=== PATIENT | female | born 1995 | race Caucasian/White ===

== ENCOUNTER 2017-07-29 14:16 | Emergency (ER) | payer OTHER ==
[2017-07-29] MEDS ORDERED: NS 1,000 ML IV ONE (14:53)
[2017-07-29] MEDS ORDERED: PROMETHAZINE HCL 25 MG/ML INJ IVP ONE (15:02)
[2017-07-29] MEDS ORDERED: ONDANSETRON 4 MG/2 ML VIAL IVP ONE (15:02)
[2017-07-29] MEDS ORDERED: FAMOTIDINE 20 MG/2 ML SDV IVP ONE (15:03)
--- NOTE | 2017-07-29 15:03 | EDPHY ---
General Time Seen by Provider: 07/29/17 14:51 Narrative: CHIEF COMPLAINT: Nausea, vomiting, abdominal pain HISTORY OF PRESENT ILLNESS: Patient presents with complaints of nausea, vomiting and abdominal pain. Symptoms started abruptly this morning. [id number]. Constant duration. No diarrhea. No bloody emesis. She has been unable to tolerate intake by mouth. No fever. No trauma or injury. No previous abdominal pathology. No recent travel. She reports that she feels very achy and tired all over. No other associated complaints or modifying factors. REVIEW OF SYSTEMS: Ten systems reviewed and are negative unless otherwise noted in the HPI PCP: Dr. Conrad SPECIALISTS: None PAST MEDICAL HISTORY: Hypothyroid, orthopedic injury PAST SURGICAL HISTORY: Left foot surgery SOCIAL HISTORY: Nonsmoker. [employer] student. Lives here independently FAMILY HISTORY: Noncontributory EXAMINATION General Appearance: Alert, no distress Head: normocephalic, atraumatic Eyes: Pupils equal and round, no conjunctival pallor or injection ENT, Mouth: Mucous membranes moist Neck: Normal inspection, supple, non-tender. No meningeal signs Respiratory: Lungs are clear to auscultation Cardiovascular: Regular rate and rhythm Gastrointestinal: Abdomen is soft and nondistended. Tenderness in the upper quadrants. No guarding. No tympany. No rigidity. No CVA tenderness. Negative McBurney. Negative Rovsing. Negative obturator. Back: non-tender, no bony abnormalities Neurological: A&O, nonfocal, normal gait Skin: Warm and dry, no rash. No petechiae or purpura Extremities: Nontender, no pedal edema Psychiatric: Mood and affect normal DIFFERENTIAL DIAGNOSES: Including but not limited to gastroenteritis, enteritis, gastritis MDM: 3:00 p.m. Sudden onset of nausea, vomiting and abdominal discomfort this morning. She feels as though she may have the flu. Vital signs of distress. I have ordered laboratory studies, IV fluid medications. I do not feel she warrants any imaging at this time but I will reassess closely. 3:45 p.m. Patient re-evaluated. She is sleeping but wakes easily. Her pain is gone and she has significant improvement in her nausea. Laboratory studies are unremarkable. 4:20 p.m. Patient re-evaluated. She is requesting pain medication with increasing abdominal pain in the upper quadrants. She does have pain out of proportion to examination, thus I have ordered pain medication as CT scan the abdomen pelvis. Her laboratory studies are unremarkable. No vomiting. 5:00 p.m. Patient has received IV morphine IV Toradol. Patient is currently in CT scan. 5:28 p.m. Notified by radiologist Dr. Cabezas. CT scan is unremarkable for any acute findings. Appendix is well visualized. 5:30 p.m. Patient re-evaluated. She is feeling much better. She has some mild body aches but no longer having abdominal pain. She has not vomited. She is tolerating water. I do feel she is stable for discharge home. She will be discharged home with further nausea medications and instructions to take ibuprofen [id number]. She is to return here in 24 hr if she does not have resolution in her symptoms, or sooner for any worsening symptoms. She is comfortable this plan discharged home stable condition. SUPERVISION: Patient was independently examined, but I discussed the case with my secondary supervising physician Dr. Rodriguez - History Smoking Status: Never smoked - Objective Vital Signs: Initial Vital Signs Temperature (C) 98.1 F 07/29/17 14:38 Heart Rate 85 07/29/17 14:38 Respiratory Rate 16 07/29/17 14:38 Blood Pressure 120/69 07/29/17 14:38 O2 Sat (%) 99 07/29/17 14:38 O2 Delivery Mode Room Air Allergies/Adverse Reactions: cefazolin Allergy (Verified 07/29/17 14:37) Home Medications: Medication Instructions Recorded Ondansetron Odt [Zofran Odt 4 mg 4 mg PO Q6 PRN #12 tab 07/29/17 (*)] Promethazine HCl [Phenergan] 12.5 mg RC TID PRN #12 supp.rect 07/29/17 Synthroid 07/29/17 Laboratory Results: Laboratory Results 07/29/17 15:15 07/29/17 15:15 07/29/17 07/29/17 07/29/17 15:37 15:15 15:15 WBC RBC Hgb Hct MCV MCH MCHC RDW Plt Count MPV Neut % (Auto) Lymph % (Auto) [place] % (Auto) Eos % (Auto) Baso % (Auto) Nucleat RBC Rel Count Absolute Neuts (auto) Absolute Lymphs (auto) Absolute Monos (auto) Absolute Eos (auto) Absolute Basos (auto) Absolute Nucleated RBC Immature Gran % Immature Gran # Sodium Potassium Chloride Carbon Dioxide Anion Gap BUN Creatinine Estimated GFR Glucose Calcium Total Bilirubin Conjugated Bilirubin Unconjugated Bilirubin AST ALT Alkaline Phosphatase Total Protein Albumin Lipase Beta HCG, Qual NEGATIVE Urine Color Urine Appearance Urine pH Ur Specific [place] Urine Protein Urine Ketones Urine Blood Urine Nitrate Urine Bilirubin Urine Urobilinogen Ur Leukocyte Esterase Urine RBC Urine WBC Ur Epithelial Cells Urine Mucus Urine Glucose Nasal Influenza A PCR NEGATIVE FOR FLU A (NEGATIVE) Nasal Influenza B PCR NEGATIVE FOR FLU B (NEGATIVE) Monoscreen NEGATIVE (NEGATIVE) 07/29/17 07/29/17 07/29/17 15:15 15:15 15:05 WBC 9.11 10^3/uL 10^3/uL (3.80-9.50) RBC 4.80 10^6/uL 10^6/uL (4.18-5.33) Hgb 15.2 g/dL g/dL (12.6-16.3) Hct 43.3 % % (38.0-47.0) MCV 90.2 fL fL (81.5-99.8) MCH 31.7 pg pg (27.9-34.1) MCHC 35.1 g/dL g/dL (32.4-36.7) RDW 11.4 % L % (11.5-15.2) Plt Count 247 10^3/uL 10^3/uL (150-400) MPV 8.9 fL fL (8.7-11.7) Neut % (Auto) 89.5 % H % (39.3-74.2) Lymph % (Auto) 6.7 % L % (15.0-45.0) [place] % (Auto) 3.4 % L % (4.5-13.0) Eos % (Auto) 0.1 % L % (0.6-7.6) Baso % (Auto) 0.1 % L % (0.3-1.7) Nucleat RBC Rel Count 0.0 % % (0.0-0.2) Absolute Neuts (auto) 8.15 10^3/uL H 10^3/uL (1.70-6.50) Absolute Lymphs (auto) 0.61 10^3/uL L 10^3/uL (1.00-3.00) Absolute Monos (auto) 0.31 10^3/uL 10^3/uL (0.30-0.80) Absolute Eos (auto) 0.01 10^3/uL L 10^3/uL (0.03-0.40) Absolute Basos (auto) 0.01 10^3/uL L 10^3/uL (0.02-0.10) Absolute Nucleated RBC 0.00 10^3/uL 10^3/uL (0-0.01) Immature Gran % 0.2 % % (0.0-1.1) Immature Gran # 0.02 10^3/uL 10^3/uL (0.00-0.10) Sodium 141 mEq/L mEq/L (135-145) Potassium 4.2 mEq/L mEq/L (3.5-5.2) Chloride 105 mEq/L mEq/L (97-110) Carbon Dioxide 21 mEq/l L mEq/l (22-31) Anion Gap 15 mEq/L mEq/L (8-16) BUN 13 mg/dL mg/dL (7-23) Creatinine 0.6 mg/dL mg/dL (0.6-1.0) Estimated GFR > 60 Glucose 94 mg/dL mg/dL (70-100) Calcium 9.3 mg/dL mg/dL (8.5-10.4) Total Bilirubin 0.9 mg/dL mg/dL (0.1-1.4) Conjugated Bilirubin 0.5 mg/dL mg/dL (0.0-0.5) Unconjugated Bilirubin 0.4 mg/dL mg/dL (0.0-1.1) AST 33 IU/L IU/L (14-46) ALT 23 IU/L IU/L (9-52) Alkaline Phosphatase 68 IU/L IU/L (38-126) Total Protein 7.1 g/dL g/dL (6.3-8.2) Albumin 4.2 g/dL g/dL (3.5-5.0) Lipase 103 IU/L IU/L (23-300) Beta HCG, Qual Urine Color YELLOW Urine Appearance CLEAR Urine pH 7.0 (5.0-7.5) Ur Specific [place] 1.020 (1.002-1.030) Urine Protein NEGATIVE (NEGATIVE) Urine Ketones NEGATIVE (NEGATIVE) Urine Blood 1+ H (NEGATIVE) Urine Nitrate NEGATIVE (NEGATIVE) Urine Bilirubin NEGATIVE (NEGATIVE) Urine Urobilinogen NEGATIVE EU EU (0.2-1.0) Ur Leukocyte Esterase NEGATIVE (NEGATIVE) Urine RBC 1-3 /hpf /hpf (0-3) Urine WBC 1-3 /hpf /hpf (0-3) Ur Epithelial Cells TRACE /lpf /lpf (NONE-1+) Urine Mucus TRACE /lpf /lpf (NONE-1+) Urine Glucose NEGATIVE (NEGATIVE) Nasal Influenza A PCR Nasal Influenza B PCR Monoscreen Medications Given: Discontinued Medications Famotidine (Pepcid) 20 mg IVP EDNOW ONE Stop: 07/29/17 15:04 Last Admin: 07/29/17 15:21 Dose: 20 mg Sodium Chloride (Ns) 1,000 mls @ 0 mls/hr IV EDNOW ONE; Wide Open PRN Reason: Protocol Stop: 07/29/17 14:54 Last Admin: 07/29/17 15:14 Dose: 1,000 mls Ketorolac Tromethamine (Toradol) 30 mg IVP EDNOW ONE Stop: 07/29/17 16:21 Last Admin: 07/29/17 16:30 Dose: 30 mg Morphine Sulfate (Morphine) 4 mg IVP EDNOW ONE Stop: 07/29/17 16:21 Last Admin: 07/29/17 16:34 Dose: 4 mg Ondansetron HCl (Zofran) 4 mg IVP EDNOW ONE Stop: 07/29/17 15:03 Last Admin: 07/29/17 15:14 Dose: 4 mg Promethazine HCl (Phenergan) 12.5 mg IVP ONCE ONE Stop: 07/29/17 15:03 Last Admin: 07/29/17 15:17 Dose: 12.5 mg Departure - Departure Disposition: Home, Routine, Self-Care Clinical Impression: Abdominal pain Qualifiers: Abdominal location: unspecified location Qualified Code(s): R10.9 - Unspecified abdominal pain Nausea & vomiting Qualifiers: Vomiting type: unspecified Vomiting Intractability: non-intractable Qualified Code(s): R11.2 - Nausea with vomiting, unspecified Condition: Good Instructions: Acute Nausea and Vomiting (ED), Abdominal Pain (ED) Additional Instructions: 1. Ibuprofen [id number] 600 mg every 8 hr as needed 2. But nausea medications as provided as needed 3. ED precautions for any worsening symptoms, fever, chills, intolerance of intake by mouth 4. Clear liquid diet today, advancing slowly as tolerated 5. Return to emergency department if her symptoms are not completely resolved within 24 hr Referrals: [facility] [Other] - As per Instructions Stand Alone Forms: School Excuse Prescriptions: Ondansetron Odt [Zofran Odt 4 mg (*)] 4 mg PO Q6 PRN #12 tab PRN Reason: Nausea/Vomiting, Use 1st Promethazine HCl [Phenergan] 12.5 mg RC TID PRN #12 supp.rect PRN Reason: Nausea/Vomiting, Can'T Take Po
[2017-07-29 15:24] LABS: PLATELET COUNT 247 10^3/uL (150-400)
[2017-07-29] MEDS ORDERED: KETOROLAC 30 MG/1 ML SDV IVP ONE (16:20)
[2017-07-29 16:36] VITALS: BP 114/70
[2017-07-29] MEDS ORDERED: IOPAMIDOL (ISOVUE-300) 100 ML BTL ONE (16:42)
== END 2017-07-29 17:51 | disposition home or self-care (01) ==
DX: R11.2 Nausea with vomiting, unspecified (principal); R10.9 Unspecified abdominal pain; E86.9 Volume depletion, unspecified
CPT/HCPCS: 96374; J1885; J2270; J2405; J2550; Q9967